=== PATIENT | female | born 1985 | race Two or more races ===

== ENCOUNTER 2019-12-07 04:02 | Emergency (ER) | payer SELFPAY ==
[2019-12-07] MEDS ORDERED: diphenhydrAMINE 50 MG/ML SDV IVPUSH ONE (04:34)
[2019-12-07 05:23] LABS: BLOOD UREA NITROGEN,BUN 9 mg/dL (7.0-18.0); CARBON DIOXIDE,CO2 25.4 mmol/L (21.0-32.0); CHLORIDE,CL 102 mmol/L (98-107); GLUCOSE RANDOM 97 mg/dL (74-106); POTASSIUM,K 3.7 mmol/L (3.5-5.1); SODIUM,NA 138 mmol/L (136-145)
--- NOTE | 2019-12-07 06:58 | EDM.PDOC ---
ED HPI GENERAL MEDICAL PROBLEM - General Chief Complaint: Skin Complaint Stated Complaint: RASH ON FACE Time Seen by Provider: 12/07/19 04:20 Source of Information: Reports: Patient, Family - History of Present Illness INITIAL COMMENTS - FREE TEXT/NARRATIVE: Pt with no reported pmh presents on day 4 of illness after returning from [place] 4 days ago. Pt first noticed a vesicular rash on her stomach that spread to her back chest extremities and face. Rash itches. Only associated symptom is fatigue. No fevers, cough, SOB, NVD or any other symptoms. Generalized Pain Score (Numeric/FACES): 10 - Related Data Allergies Allergy/AdvReac Type Severity Reaction Status Date / Time No Known Allergies Allergy Verified 12/07/19 04:26 Home Meds: Home Meds Cephalexin [Keflex] 500 mg PO TID 12/07/19 [History] Pramoxine HCl/Calamine [Calamine Medicated Lotion] 1 dose TP Q6H PRN #1 bottle 12/07/19 [Rx] Past Medical History - Past Health History Medical/Surgical History: Denies Medical/Surgical History Psychiatric History: Reports: None - Infectious Disease History Infectious Disease History: Reports: None Social & Family History - Tobacco Use Smoking Status *Q: Never Smoker - Recreational Drug Use Recreational Drug Use: No ED ROS GENERAL - Review of Systems Review Of Systems: See Below Constitutional: Reports: Fatigue. Denies: Fever, Chills HEENT: Denies: Throat Pain, Throat Swelling Respiratory: Denies: Shortness of Breath, Cough Cardiovascular: Denies: Chest Pain GI/Abdominal: Denies: Abdominal Pain, Diarrhea, Nausea, Vomiting : Denies: Dysuria Musculoskeletal: Reports: No Symptoms Skin: Reports: Rash, Lesions Neurological: Reports: No Symptoms ED EXAM, SKIN/RASH Exam: See Below General Appearance: Alert, WD/WN, No Apparent Distress Nose: Normal Inspection Throat/Mouth: Normal Inspection, Normal Oropharynx Head: Atraumatic, Normocephalic. No: Facial Swelling Neck: Normal Inspection Respiratory/Chest: No Respiratory Distress, Lungs Clear, Normal Breath Sounds Cardiovascular: Regular Rate, Rhythm, No Murmur GI/Abdominal: Soft, Non-Tender, No Distention Skin: Rash (Rash covers total body. small clear vesicles surrounded by erythematous patches. No skin sloughing no muscosal involvement) Course - Vital Signs Last Recorded V/S: Last Vital Signs Temp 98.8 F 12/07/19 04:23 Pulse 99 12/07/19 07:35 Resp 18 12/07/19 07:35 BP 118/55 L 12/07/19 07:35 Pulse Ox 98 12/07/19 07:35 - Orders/Labs/Meds Labs: Laboratory Tests 12/07/19 12/07/19 Range/Units 04:55 04:55 WBC 5.68 (4.0-11.0) K/uL RBC 4.48 (4.30-5.90) M/uL Hgb 14.0 (12.0-16.0) g/dL Hct 39.8 (36.0-46.0) % MCV 88.8 (80.0-98.0) fL MCH 31.3 (27.0-32.0) pg MCHC 35.2 (31.0-37.0) g/dL RDW Std Deviation 42.8 (28.0-62.0) fl RDW Coeff of Gale 13 (11.0-15.0) % Plt Count 215 (150-400) K/uL MPV 10.00 (7.40-12.00) fL Add Manual Diff YES Neutrophils % (Manual) 47 L (48.0-80.0) % Band Neutrophils % 11 % Lymphocytes % (Manual) 27 (16.0-40.0) % Monocytes % (Manual) 13 (0.0-15.0) % Eosinophils % (Manual) 1 (0.0-7.0) % Basophils % (Manual) 1 (0.0-1.5) % Nucleated RBC % 0.0 /100WBC Absolute Seg Neuts 2.7 (1.4-5.7) Band Neutrophils # 0.6 Lymphocytes # (Manual) 1.5 (0.6-2.4) Monocytes # (Manual) 0.7 (0.0-0.8) Eosinophils # (Manual) 0.1 (0.0-0.7) Basophils # (Manual) 0.1 (0.0-0.1) Nucleated RBCs # 0 K/uL Sodium 138 (136-145) mmol/L Potassium 3.7 (3.5-5.1) mmol/L Chloride 102 (98-107) mmol/L Carbon Dioxide 25.4 (21.0-32.0) mmol/L BUN 9 (7.0-18.0) mg/dL Creatinine 0.6 (0.6-1.0) mg/dL Est Cr Clr Drug Dosing 121.13 mL/min Estimated GFR (MDRD) > 60.0 ml/min Glucose 97 (74-106) mg/dL Calcium 9.0 (8.5-10.1) mg/dL Total Bilirubin 0.3 (0.2-1.0) mg/dL AST 59 H (15-37) IU/L ALT 134 H (14-63) IU/L Alkaline Phosphatase 102 (46-116) U/L Total Protein 8.3 H (6.4-8.2) g/dL Albumin 3.7 (3.4-5.0) g/dL Globulin 4.6 H (2.6-4.0) g/dL Albumin/Globulin Ratio 0.8 L (0.9-1.6) Meds: Medications Discontinued Medications Generic Name Dose Route Start Last Admin Trade Name Freq PRN Reason Stop Dose Admin Diphenhydramine HCl 25 mg 12/07/19 04:34 12/07/19 05:05 Benadryl IVPUSH 12/07/19 04:35 25 mg ONETIME ONE Administration - Re-Assessments/Exams Free Text/Narrative Re-Assessment/Exam: 12/07/19 07:03 VS stable and PE described above with rash. Pt nontoxic appearing. Pt has received MMR and other vaccination series per . I spoke to Infectious Disease at [facility] (Dr. Carlos Moore) and case reviewed. We feel that this is Chicken Pox (VZV). We feel that this is a low severity case and supportive care is advised. If symptoms should worsen We recommend that the return to Our ER for Work up and transfer to [facility] for ID evaluation. Pt and comfortable with this plan and strict return precautions. 12/09/19 09:01 Departure - Departure Time of Disposition: 07:15 Disposition: Home, Self-Care 01 Condition: Good Clinical Impression: Chicken pox Qualifiers: Varicella complications: without complication Qualified Code(s): B01.9 - Varicella without complication - Discharge Information *PRESCRIPTION DRUG MONITORING PROGRAM REVIEWED*: Not Applicable *COPY OF PRESCRIPTION DRUG MONITORING REPORT IN PATIENT EMELY: Not Applicable Prescriptions: Pramoxine HCl/Calamine [Calamine Medicated Lotion] 1 dose TP Q6H PRN #1 bottle PRN Reason: Itching Instructions: Chickenpox, Adult Referrals: PCP,None [Primary Care Provider] - Forms: ED Department Discharge Additional Instructions: The following information is given to patients seen in the emergency department who are being discharged to home. This information is to outline your options for follow-up care. We provide all patients seen in our emergency department with a follow-up referral. The need for follow-up, as well as the timing and circumstances, are variable depending upon the specifics of your emergency department visit. If you don't have a primary care physician on staff, we will provide you with a referral. We always advise you to contact your personal physician following an emergency department visit to inform them of the circumstance of the visit and for follow-up with them and/or the need for any referrals to a consulting specialist. The emergency department will also refer you to a specialist when appropriate. This referral assures that you have the opportunity for follow-up care with a specialist. All of these measure are taken in an effort to provide you with optimal care, which includes your follow-up. Under all circumstances we always encourage you to contact your private physician who remains a resource for coordinating your care. When calling for follow-up care, please make the office aware that this follow-up is from your recent emergency room visit. If for any reason you are refused follow-up, please contact the [facility] at and asked to speak to the emergency department charge nurse. [facility] [address] [place] [address] [id number] [address] [id number] Sepsis Event Note - Evaluation Sepsis Screening Result: No Definite Risk - Focused Exam Date Exam was Performed: 12/09/19 Time Exam was Performed: 09:00
[2019-12-07 07:36] VITALS: BP 118/55; PULSE 99
== END 2019-12-07 07:36 | disposition home or self-care (01) ==
LOC: MW.ED 04:02
DX: B01.9 Varicella without complication (principal)
CPT/HCPCS: 36415; 80053; 85025; 96374; 99283; J1200